=== PATIENT | male | born 1980 | race Caucasian/White ===

== ENCOUNTER 2017-06-06 13:40 | Emergency (ER) | payer OTHER ==
[2017-06-06 13:46] VITALS: TEMP 97.9
[2017-06-06 13:47] VITALS: BMI 30.7
--- NOTE | 2017-06-06 14:15 | C.PDOC ---
History Of Present Illness 37 year old male who presents to the ER after twisting his left ankle on uneven pavement [employer]. Patient reports he is unable to bear weight on foot; denies other injuries. Time Seen by Provider: 06/06/17 13:46 Chief Complaint (Nursing): Lower Extremity Problem/Injury History Per: Patient History/Exam Limitations: no limitations Onset/Duration Of Symptoms: Hrs Current Symptoms Are (Timing): Still Present Recent travel outside of the [place]: No - Ankle/Foot Description Of Injury: Twisted Currently Unable To: Bear Weight Past Medical History Reviewed: Historical Data, Nursing Documentation, Vital Signs Vital Signs: Last Vital Signs Temp 97.9 F 06/06/17 13:45 Pulse 88 06/06/17 15:09 Resp 17 06/06/17 15:09 BP 120/75 06/06/17 15:09 Pulse Ox 98 06/06/17 15:09 - Medical History PMH: No Chronic Diseases Surgical History: No Surg Hx - [facility] APPLICATION OF SPLINT (10/30/13) Family History: States: Unknown Family Hx - Social History Hx Tobacco Use: No Hx Alcohol Use: No Hx Substance Use: No - Immunization History Hx Tetanus Toxoid Vaccination: No Hx Influenza Vaccination: No Hx Pneumococcal Vaccination: No Review Of Systems Musculoskeletal: Positive for: Foot Pain Neurological: Negative for: Weakness, Numbness Physical Exam - Physical Exam Appears: Non-toxic Skin: Normal Color, Warm, Dry Head: Atraumatic, Normacephalic Oral Mucosa: Moist Extremity: Tenderness (Mild to dorsum of proximal aspect of left foot), No Deformity, No Swelling Pulses: Left Dorsalis Pedis: Normal, Right Dorsalis Pedis: Normal Neurological/Psych: Oriented x3, Normal Speech, Normal Cognition ED Course And Treatment O2 Sat by Pulse Oximetry: 96 (Room air) Pulse Ox Interpretation: Normal - Other Rad ankle X-Ray: Viewed By Me, Read By Radiologist Interpretation: Degenerative changes. No acute displaced fracture or dislocation identified. If symptoms persist or if there is continued clinical concern, x-ray follow-up in 7-10 days should be considered. Medical Decision Making Medical Decision Making: Plan: Tylenol Left ankle x-ray 327 pm pt feeling better after tylenol, no fx on xray. francisco bandage applied, pt able ot bear weight. will d/c with ortho follow up. Disposition Counseled Patient/Family Regarding: Studies Performed, Diagnosis, Need For Followup, Rx Given - Disposition Referrals: Victoria Murphy MD [Staff Provider] - Disposition: HOME/ ROUTINE Disposition Time: 15:28 Condition: STABLE Additional Instructions: Wear francisco bandage during daytime for comfort and to reduce swelling. Elevate foot when possible, Tylenol or Motrin for pain. Follow up with Dr Murphy if pain persists after a few days. Forms: [facility] (Filipino), General Discharge Instructions - Clinical Impression Clinical Impression: Left ankle sprain - Scribe Statement The provider has reviewed the documentation as recorded by the Scribe Reese Dubose All medical record entries made by the Scribe were at my direction and personally dictated by me. I have reviewed the chart and agree that the record accurately reflects my personal performance of the history, physical exam, medical decision making, and the department course for this patient. I have also personally directed, reviewed, and agree with the discharge instructions and disposition.
--- NOTE | 2017-06-06 14:55 | RAD ---
PROCEDURE: Left Ankle Radiographs. HISTORY: medial malleolus pain s/p twisted ankle COMPARISON: None FINDINGS: Osteophyte arising from the navicular bone. No acute displaced fracture identified. No evidence of dislocation. No significant soft tissue swelling. No evidence of radiopaque foreign body. IMPRESSION: Degenerative changes. No acute displaced fracture or dislocation identified. If symptoms persist or if there is continued clinical concern, x-ray follow-up in 7-10 days should be considered.
[2017-06-06 15:27] VITALS: BP 120/75; PULSE 88; RESP 17
[2017-06-06 15:29] VITALS: O2SAT 96
== END 2017-06-06 15:36 | disposition home or self-care (01) ==
LOC: C.ER 13:40
DX: S93.402A Sprain of unspecified ligament of left ankle, initial encounter (principal); X50.1XXA Overexertion from prolonged static or awkward postures, initial encounter; Y92.480 Sidewalk as the place of occurrence of the external cause